=== PATIENT | female | born 1990 | race African-American/Black ===

== ENCOUNTER 2017-11-30 20:33 | Emergency (ER) | payer MEDICAID ==
[~2017-11-30] VITALS: Ht 172.7 cm; Wt 70.3 kg
[~2017-11-30 20:33] MED LIST: INSULIN LISPRO; LANTUS; LISI2.5T47 PO
[2017-11-30 22:28] LABS: Basophils # (auto) 0 uL; Eosinophils # (auto) 0.2 uL; Hematocrit 35.6 % (36.0-46.0); Hemoglobin 11.2 g/dL (12.2-16.2); Lymphocytes # (auto) 0.9 uL; Mean Corpuscular Hemoglobin 27.3 pg (28.0-32.0); Mean Corpuscular Hgb Conc. 31.5 g/dL (32.0-36.0); Mean Corpuscular Volume 86.7 fL (80.0-100.0); Monocytes # (auto) 0.3 uL; Monocytes % (auto) 6.3 % (0.0-12.0); Neutrophils # (auto) 3.2 uL; Neutrophils % (auto) 68.7 % (37.0-80.0); Nucleated Red Blood Cells % 0.1 %; Platelet Count (auto) 260 10^3/uL (140-450); Red Blood Cells 4.11 10^6/uL (4.0-5.20); Red Cell Distribution Width 16.3 % (11.8-14.3); White Blood Cell 4.7 10^3/uL (4.4-10.8)
[2017-11-30 22:38] LABS: Albumin 3.7 g/dL (3.4-5.0); BUN/Creatinine Ratio 3.1; Bilirubin, Total 0.5 mg/dL (0.2-1.0); Calcium 6.4 mg/dL (8.5-10.1); Potassium 3.9 mmol/L (3.5-5.1); Total Protein 8.8 g/dL (6.4-8.2)
[2017-11-30] MEDS ORDERED: LEVETIRACETAM INJ 1,000 MG in D5W 5% 100 ML IV ONE (23:15)
[2017-11-30 23:31] LABS: Magnesium 2.3 mg/dL (1.6-2.6)
[2017-11-30] MEDS ORDERED: LEVETIRACETAM 500 MG/5ML INJ IV ONE (23:56)
[2017-12-01 01:55] VITALS: BP 132/69
== END 2017-12-01 02:33 | disposition home or self-care (01) ==
LOC: ER 20:33
DX: G40.909 Epilepsy, unspecified, not intractable, without status epilepticus (principal); E83.51 Hypocalcemia; E11.22 Type 2 diabetes mellitus with diabetic chronic kidney disease; I13.2 Hypertensive heart and chronic kidney disease with heart failure and with stage 5 chronic kidney disease, or end stage renal disease; N18.6 End stage renal disease; Z99.2 Dependence on renal dialysis
CPT/HCPCS: 36415; 70450; 80053; 83735; 83880; 84443; 84484; 84702; 85025; 96365; 99285; J1953; J7060

== ENCOUNTER 2023-11-29 18:30 | Inpatient (IN) | payer MEDICAID ==
[~2023-11-29] VITALS: Ht 175.3 cm; Wt 83.8 kg
[~2023-11-29 18:30] MED LIST changes: +ASPI81CH43 PO; +CARV-216 PO; +DICL500C76 PO; +DOXY-286 PO; +NIC21P TOP; +SACU1TAB PO
[2023-11-29 22:10] LABS: Basophils # (auto) 0.1 10 ^3/uL (0-0.2); Basophils % (auto) 0.9 % (0.0-2.0); Eosinophils # (auto) 0.3 10 ^3/uL (0-0.8); Eosinophils % (auto) 3.1 % (0.0-7.0); Hemoglobin 10.2 g/dL (12.2-16.2); Mean Corpuscular Hemoglobin 28.6 pg (28.0-32.0); Mean Corpuscular Hgb Conc. 31.8 g/dL (32.0-36.0); Mean Corpuscular Volume 90.1 fL (80.0-100.0); Monocytes # (auto) 0.5 10 ^3/uL (0-1.3); Neutrophils # (auto) 5.3 10 ^3/uL (1.6-8.6); Red Blood Cells 3.56 10^6/uL (4.0-5.20); Red Cell Distribution Width 14.4 % (11.8-14.3); White Blood Cell 8.1 10^3/uL (4.4-10.8)
[2023-11-29 22:12] LABS: Chloride 97 mmol/L (98-107); Potassium 3.9 mmol/L (3.5-5.1); Sodium 137 mmol/L (136-145)
[2023-11-29 22:13] LABS: Anion Gap 10 (5-15); Calcium 8.1 mg/dL (8.5-10.1); Carbon Dioxide 30 mmol/L (20-30)
[2023-11-29 22:18] LABS: BUN/Creatinine Ratio 3.9 (10.0-20.0); Blood Urea Nitrogen 30 mg/dL (9-23); Glucose 200 mg/dL (74-106)
[2023-11-29 22:52] LABS: Erythrocyte Sedimentation Rate 67 mm/hr (0-20)
[2023-11-30] MEDS: cefTRIAXone 1GM/50ML D5W 50 ML IV ONE (01:08)
[2023-11-30] MEDS: CLINDAMYCIN 900MG IV 50 ML IV ONE (01:14)
[2023-11-30] MEDS ORDERED: HYDROcodone-ACET 5/325MG TAB PO PRN (02:00)
[2023-11-30] MEDS ORDERED: ACETAMINOPHEN 325 MG TAB PO PRN (02:00)
[2023-11-30] MEDS ORDERED: ONDANSETRON HCL 4 MG/2 ML VIAL IV PRN (02:00)
[2023-11-30] MEDS ORDERED: DEXTROSE (50%) 50ML SYRG IV PRN (02:00)
[2023-11-30] MEDS: InsuLIN REG 1unit/0.01ml Soln (100units/ml) SC SCH ×2 (07:00→23:06)
[2023-11-30] MEDS: ACCU-CHEK COMFORT CURVE STRIP VI SCH (07:07)
[2023-11-30] MEDS: CLINDAMYCIN 600MG IV 50 ML IV SCH (10:13)
[2023-11-30] MEDS: amLODIPine BESYLATE 5 MG TAB PO SCH (11:38)
[2023-11-30] MEDS: ASPirin 81 mg TAB PO SCH (11:38)
[2023-11-30] MEDS: CARVEDILOL 12.5 MG TAB PO SCH (12:04)
[2023-11-30] MEDS: SACUBITRIL-VALSARTAN 24mg/26mg TAB PO SCH (13:58)
[2023-11-30] MEDS: SODIUM CHL 0.9% 1000 ML BAG XX ONE (15:00)
[2023-11-30 16:59] VITALS: PULSE 89; RESP 20; O2SAT 96
[2023-11-30 19:04] LABS: % Iron Saturation 20.2 % (15-50)
[2023-11-30 19:05] LABS: Phosphorus 2.2 mg/dL (2.4-5.1)
[2023-11-30 19:30] VITALS: PULSE 76; RESP 18; O2SAT 96
[2023-11-30] MEDS: EPOETIN ALFA-EPBX 10,000 UNIT/1ML VIAL SC ONE (21:18)
[2023-11-30] MEDS: metroNIDAZOLE 500MG/100ML 100 ML IV SCH (23:04)
[2023-12-01] VITALS (10 sets, daily range): BP systolic 141–170; BP diastolic 58–85; PULSE 75–86; RESP 14–19; TEMP 98.2–98.9; O2SAT 98–100
[2023-12-01] MEDS: cefTRIAXone 1GM/50ML D5W 50 ML IV SCH (02:36)
[2023-12-01] MEDS: hydrALAZINE HCL 20 MG/ML VL IV ONE (05:57)
[2023-12-01 06:13] LABS: Basophils # (auto) 0.1 10 ^3/uL (0-0.2); Eosinophils # (auto) 0.3 10 ^3/uL (0-0.8); Eosinophils % (auto) 4.4 % (0.0-7.0); Hematocrit 32.8 % (36.0-46.0); Hemoglobin 10.4 g/dL (12.2-16.2); Lymphocytes # (auto) 1.7 10 ^3/uL (0.4-5.4); Lymphocytes % (auto) 22.6 % (10.0-50.0); Mean Corpuscular Hemoglobin 28.5 pg (28.0-32.0); Mean Corpuscular Hgb Conc. 31.7 g/dL (32.0-36.0); Monocytes # (auto) 0.5 10 ^3/uL (0-1.3); Monocytes % (auto) 7.4 % (0.0-12.0); Neutrophils # (auto) 4.7 10 ^3/uL (1.6-8.6); Neutrophils % (auto) 64.6 % (37.0-80.0); Nucleated Red Blood Cells % 0.1 %; Red Blood Cells 3.65 10^6/uL (4.0-5.20); Red Cell Distribution Width 14.2 % (11.8-14.3); White Blood Cell 7.3 10^3/uL (4.4-10.8)
[2023-12-01 06:28] LABS: Albumin 4.1 g/dL (3.2-4.8); Alkaline Phosphatase 99 U/L (46-116); Anion Gap 9 (5-15); Aspartate Aminotransferase < 8 U/L (13-40); BUN/Creatinine Ratio 3.6 (10.0-20.0); Blood Urea Nitrogen 22 mg/dL (9-23); Calcium 8.7 mg/dL (8.5-10.1); Carbon Dioxide 30 mmol/L (20-30); Chloride 99 mmol/L (98-107); Glucose 95 mg/dL (74-106); Sodium 138 mmol/L (136-145)
[2023-12-01 06:29] LABS: Bilirubin, Total 0.4 mg/dL (0.2-1.0); Total Protein 8.1 g/dL (5.7-8.2)
[2023-12-01 06:32] LABS: Alanine Aminotransferase < 9 U/L (7-40)
[2023-12-01] MEDS: DAKINS QUARTER STR 0.125% (NaHypochlorite) 473 ML TOPICAL SOL TOP SCH (10:00)
[2023-12-01] MEDS: B-COMPLEX W/ C & FOLIC ACID(NEPHROVITE TAB) PO SCH (10:00)
[2023-12-01] MEDS: CARVEDILOL 12.5 MG TAB PO SCH (11:42)
[2023-12-02 05:00] VITALS: BP 129/70; PULSE 75; RESP 14; TEMP 98; O2SAT 99
[2023-12-02 07:30] VITALS: PULSE 83; RESP 14; O2SAT 98
[2023-12-02 07:37] LABS: Basophils # (auto) 0.1 10 ^3/uL (0-0.2); Eosinophils # (auto) 0.2 10 ^3/uL (0-0.8); Eosinophils % (auto) 4.1 % (0.0-7.0); Hematocrit 32.4 % (36.0-46.0); Hemoglobin 10.5 g/dL (12.2-16.2); Lymphocytes # (auto) 1.6 10 ^3/uL (0.4-5.4); Lymphocytes % (auto) 26.7 % (10.0-50.0); Mean Corpuscular Hemoglobin 29.2 pg (28.0-32.0); Mean Corpuscular Hgb Conc. 32.2 g/dL (32.0-36.0); Mean Corpuscular Volume 90.5 fL (80.0-100.0); Monocytes # (auto) 0.6 10 ^3/uL (0-1.3); Monocytes % (auto) 9.9 % (0.0-12.0); Neutrophils # (auto) 3.4 10 ^3/uL (1.6-8.6); Neutrophils % (auto) 58.3 % (37.0-80.0); Red Blood Cells 3.58 10^6/uL (4.0-5.20); Red Cell Distribution Width 14.4 % (11.8-14.3); White Blood Cell 5.9 10^3/uL (4.4-10.8)
[2023-12-02 07:46] LABS: Anion Gap 15 (5-15); Carbon Dioxide 24 mmol/L (20-30); Chloride 98 mmol/L (98-107); Potassium 4.5 mmol/L (3.5-5.1); Sodium 137 mmol/L (136-145)
[2023-12-02 07:48] LABS: Calcium 8.3 mg/dL (8.5-10.1)
[2023-12-02 07:52] LABS: BUN/Creatinine Ratio 4.2 (10.0-20.0); Glucose 129 mg/dL (74-106)
[2023-12-02 07:53] LABS: Blood Urea Nitrogen 36 mg/dL (9-23)
[2023-12-02 08:28] LABS: INR 1.15 (0.9-1.15); Partial Thromboplastin Time 26.3 SEC (24.5-34.5); Prothrombin Time 12.1 sec (9.3-11.8)
[2023-12-02 09:00] VITALS: BP 113/64; PULSE 83; RESP 17; TEMP 97.1; O2SAT 100
[2023-12-02 13:00] VITALS: BP 138/80; PULSE 80; RESP 16; TEMP 98; O2SAT 99
[2023-12-02] MEDS ORDERED: GABA-1308 PO (17:29)
[2023-12-02] MEDS ORDERED: HYDR-4798 PO (17:29)
[2023-12-02] MEDS ORDERED: AMLO1TAB22 PO (17:29)
[2023-12-02 20:00] VITALS: PULSE 78; RESP 14; O2SAT 98
[2023-12-02 21:00] VITALS: BP 141/76; PULSE 78; RESP 14; TEMP 98.5; O2SAT 99
[2023-12-03 00:41] VITALS: BP 135/74; PULSE 78; RESP 14; TEMP 98.2; O2SAT 99
[2023-12-03 07:46] VITALS: PULSE 76; RESP 16; O2SAT 98
[2023-12-03 11:01] LABS: Basophils # (auto) 0.1 10 ^3/uL (0-0.2); Basophils % (auto) 0.9 % (0.0-2.0); Eosinophils # (auto) 0.2 10 ^3/uL (0-0.8); Eosinophils % (auto) 3.5 % (0.0-7.0); Hematocrit 32.9 % (36.0-46.0); Hemoglobin 10.4 g/dL (12.2-16.2); Lymphocytes # (auto) 1.4 10 ^3/uL (0.4-5.4); Lymphocytes % (auto) 20.4 % (10.0-50.0); Mean Corpuscular Hgb Conc. 31.5 g/dL (32.0-36.0); Mean Corpuscular Volume 88.9 fL (80.0-100.0); Monocytes # (auto) 0.4 10 ^3/uL (0-1.3); Monocytes % (auto) 6.4 % (0.0-12.0); Neutrophils # (auto) 4.6 10 ^3/uL (1.6-8.6); Neutrophils % (auto) 68.8 % (37.0-80.0); Nucleated Red Blood Cells % 0.1 %; Red Blood Cells 3.71 10^6/uL (4.0-5.20); Red Cell Distribution Width 14.5 % (11.8-14.3); White Blood Cell 6.7 10^3/uL (4.4-10.8)
[2023-12-03 13:00] VITALS: BP 152/86; PULSE 83; RESP 18; O2SAT 97
[2023-12-03 16:55] VITALS: BP 137/72; PULSE 88; RESP 18; O2SAT 98
[2023-12-03 20:30] VITALS: O2SAT 99
[2023-12-04 01:00] VITALS: BP 119/59; PULSE 91; RESP 18; O2SAT 99
[2023-12-04 06:26] LABS: Chloride 97 mmol/L (98-107); Potassium 4.2 mmol/L (3.5-5.1); Sodium 137 mmol/L (136-145)
[2023-12-04 06:27] LABS: Anion Gap 15 (5-15); Calcium 8.9 mg/dL (8.5-10.1); Carbon Dioxide 25 mmol/L (20-30)
[2023-12-04 06:32] LABS: BUN/Creatinine Ratio 3.5 (10.0-20.0); Blood Urea Nitrogen 27 mg/dL (9-23); Glucose 78 mg/dL (74-106)
[2023-12-04 08:00] VITALS: PULSE 72; RESP 17; O2SAT 98
[2023-12-04 09:00] VITALS: BP_SYST 118; BP_SYST 142; BP_DIAS 69; BP_DIAS 73; PULSE 63; PULSE 82; RESP 16; RESP 17; TEMP 97.8; O2SAT 96; O2SAT 98
[2023-12-04] MEDS ORDERED: VANCOMYCIN PER PHARMACY 0 MG IV SCH (11:45)
[2023-12-04] MEDS: DAKINS HALF STR 0.25% (NaHypochlorite) 473 ML TOPICAL SOL TOP ONE (12:15)
[2023-12-04] MEDS: VANCOMYCIN 1GM/200ML 200 ML IV ONE (12:15)
[2023-12-04 16:58] VITALS: BP 129/70; PULSE 96; RESP 16; O2SAT 97
[2023-12-04 21:00] VITALS: BP 150/83; PULSE 80; RESP 17; TEMP 97.1; O2SAT 100
[2023-12-05 05:15] VITALS: BP 128/70; PULSE 77; RESP 17; TEMP 97; O2SAT 100
[2023-12-05 07:30] VITALS: BP 128/70; PULSE 75; PULSE 77; RESP 17; TEMP 97.8; O2SAT 97
[2023-12-05 09:11] LABS: INR 1.16 (0.9-1.15); Partial Thromboplastin Time 23.9 SEC (24.5-34.5); Prothrombin Time 12.2 sec (9.3-11.8)
[2023-12-05] MEDS: LIDOCAINE 1% (LOCAL ANESTH.) PF 5ml SDV ID ONE (11:32)
[2023-12-05 15:07] VITALS: BP 171/74; PULSE 81; RESP 18; TEMP 98.5; O2SAT 98
[2023-12-05] MEDS ORDERED: SODIUM CHLOR 0.9% PF (SALINE LOCK) 10ML VIAL/SYR IV SCH (22:00)
== END 2023-12-05 16:05 | disposition home health service (06) | DRG 344 ==
LOC: ER 18:30 → OVERFLOW 11-30 01:58 → CENTRAL 12-01 03:25
PROVIDERS: ADMIT Nurse Practitioner Acute Care; ATTEND Nurse Practitioner Acute Care
PROC: 5A1D70Z Performance of Urinary Filtration, Intermittent, Less than 6 Hours Per Day (ICD-10-PCS; principal; 2023-11-30)
PROC: 0JBQ0ZZ Excision of Right Foot Subcutaneous Tissue and Fascia, Open Approach (ICD-10-PCS; 2023-12-04)
PROC: 02HV33Z Insertion of Infusion Device into Superior Vena Cava, Percutaneous Approach (ICD-10-PCS; 2023-12-05)
PROC: B548ZZA Ultrasonography of Superior Vena Cava, Guidance (ICD-10-PCS; 2023-12-05)
DX: E11.621 Type 2 diabetes mellitus with foot ulcer (principal); M86.672 Other chronic osteomyelitis, left ankle and foot; M86.671 Other chronic osteomyelitis, right ankle and foot; I13.2 Hypertensive heart and chronic kidney disease with heart failure and with stage 5 chronic kidney disease, or end stage renal disease; L03.115 Cellulitis of right lower limb; E11.22 Type 2 diabetes mellitus with diabetic chronic kidney disease; D63.1 Anemia in chronic kidney disease; E83.39 Other disorders of phosphorus metabolism; N18.6 End stage renal disease; L03.116 Cellulitis of left lower limb; L97.519 Non-pressure chronic ulcer of other part of right foot with unspecified severity; E11.69 Type 2 diabetes mellitus with other specified complication; I50.9 Heart failure, unspecified; F41.9 Anxiety disorder, unspecified; F32.A Depression, unspecified; L97.529 Non-pressure chronic ulcer of other part of left foot with unspecified severity; L84 Corns and callosities; S90.821A Blister (nonthermal), right foot, initial encounter; X58.XXXA Exposure to other specified factors, initial encounter; Z99.2 Dependence on renal dialysis; Z79.82 Long term (current) use of aspirin; Z79.899 Other long term (current) drug therapy; Z82.0 Family history of epilepsy and other diseases of the nervous system; Z82.5 Family history of asthma and other chronic lower respiratory diseases; Z80.0 Family history of malignant neoplasm of digestive organs; Z80.3 Family history of malignant neoplasm of breast; Z82.49 Family history of ischemic heart disease and other diseases of the circulatory system; Z81.8 Family history of other mental and behavioral disorders; Z83.3 Family history of diabetes mellitus; Z82.62 Family history of osteoporosis; Z80.41 Family history of malignant neoplasm of ovary; Z80.1 Family history of malignant neoplasm of trachea, bronchus and lung; Z59.00 Homelessness unspecified; Z80.8 Family history of malignant neoplasm of other organs or systems; Z82.3 Family history of stroke; Y93.89 Activity, other specified; Y92.89 Other specified places as the place of occurrence of the external cause; Y99.8 Other external cause status; Z79.4 Long term (current) use of insulin
CPT/HCPCS: 36415; 36569; 71045; 73630; 73700; 80048; 80053; 80202; 82306; 82728; 82962; 83036; 83540; 83550; 83735; 83970; 84100; 84702; 85025; 85610; 85652; 85730; 87040; 87070; 87075; 87077; 87186; 87205; 87340; 90935; G0378; J1642; J1815; J3490

== ENCOUNTER 2024-06-21 23:30 | Emergency (ER) | payer MEDICAID ==
[~2024-06-21] VITALS: Ht 175.3 cm; Wt 86.4 kg
[~2024-06-21 23:30] MED LIST changes: +AMLO1TAB22 PO; -DICL500C76 PO; -DOXY-286 PO; +DOXY1CAP57 PO; +GABA-1308 PO; +HYDR-4798 PO; -NIC21P TOP
[2024-06-22] MEDS: LIDOCAINE 1% HCL (LOCAL ANESTH.) INJ 20ML MDV ID ONE
[2024-06-22] MEDS ORDERED: CEPH250C PO (01:04)
[2024-06-22] MEDS ORDERED: ACET500T58 PO (01:04)
--- NOTE | 2024-06-22 01:05 | ED.PDOC ---
HPI Comments This patient is a pleasant 33-year-old female who arrives to the ED today for evaluation of the laceration to her left thumb sustained on a can lid while preparing food proximally 1/2 hour prior to arrival. Patient had open a can of beans when she cut her thumb. Patient arrives with bleeding controlled. Patient's tetanus is not up-to-date. Vital signs were stable. Chief Complaint: Laceration Time Seen by MD: 23:48 Primary Care Provider: [facility] Reviewed Notes: Nurses Notes Allergies: Coded Allergies: Nitroglycerin (Verified Allergy, Unknown, 12/31/20) Home Meds Active Scripts Doxycycline Monohydrate (Doxycycline Monohydrate) 100 Mg Cap, 100 MG PO BID for 42 Days, #84 CAP Prov:ADOFLO AGUILAR MD 12/14/23 Sacubitril-Valsartan (Entresto 24-26 mg) 1 Tab Tab, 1 TAB PO BID, #60 TAB Prov:WANDA BALDWIN MD 08/31/19 Carvedilol (COREG) 12.5 Mg Tab, 12.5 MG PO Q12HR, #60 TAB Prov:WANDA BALDWIN MD 08/31/19 Aspirin (Asa) 81 Mg Ch, 81 MG PO DAILY, #30 TAB.CHEW Prov:WANDA BALDWIN MD 08/31/19 Reported Medications Hydrocodone-Acetaminophen (Hydrocodone Bitartrate/AC 10-325 mg) 1 Tab Tab, 1 TAB PO TID 12/02/23 Gabapentin (Gabapentin) 100 Mg Cap, 1 TAB PO TID 12/02/23 Amlodipine Besylate (Amlodipine Besylate) 5 Mg Tab, 10 MG PO DAILY 12/02/23 Lisinopril (Lisinopril) 2.5 Mg Tab, 2.5 MG PO DAILY 11/15/11 [Humalog 3 Unit Ac] No Conflict Check 09/26/10 [Lantus] No Conflict Check, SUB 10 UNITS HS 09/26/10 Information Source: Patient Mode of Arrival: Ambulatory Severity: Moderate Severity of Laceration: Controlled Bleeding Complexity: Simple Timing: Minutes Prehospital treatment: None Laceration Location: Digit #1 Mechanism: Metal Laceration Length (cm): 1 Skin Type: Linear Depth of Injury: Skin, Mucosa Tendon Injury: 0% Tender: Mild Past Medical History PAST MEDICAL HISTORY: Anxiety, Depression, DM, ESRD, HTN, Seizures Surgical History: Denies all surgeries GROCERY SHOPPER History: No Pertinent GROCERY SHOPPER History Family History Family History: Unknown Social History Smoker: Non-Smoker Alcohol: Denies ETOH Use Drugs: Denies Drug Use Lives In: Home Constitutional: denies: chills, diaphoresis, fatigue, fever, malaise, sweats, weakness, others EENTM: denies: blurred vision, double vision, ear bleeding, ear discharge, ear drainage, ear pain, ear ringing, eye pain, eye redness, hearing loss, mouth pain, mouth swelling, nasal discharge, nose bleeding, nose congestion, nose pain, photophobia, tearing, throat pain, throat swelling, voice changes, others Respiratory: denies: cough, hemoptysis, orthopnea, SOB at rest, shortness of breath, SOB with excertion, stridor, wheezing, others Cardiovascular: denies: chest pain, dizzy spells, diaphoresis, Dyspnea on exertion, edema, irregular heart beat, left arm pain, lightheadedness, pa lpitations, PND, syncope, others Gastrointestinal: denies: abdomen distended, abdominal pain, blood streaked bowels, constipated, diarrhea, dysphagia, difficulty swallowing, hematemesis, melena, nausea, poor appetite, poor fluid intake, rectal bleeding, rectal pain, vomiting, others Genitourinary: denies: abnormal vagina bleeding, burning, dyspareunia, dysuria, flank pain, frequency, hematuria, incontinence, pain, , vagina discharge, urgency, others Neurological: denies: dizziness, fainting, headache, left sided numbness, left sided weakness, numbness, paresthesia, pre-existing deficit, right sided numbness, right sided weakness, seizure, speech problems, tingling, tremors, weakness, others Musculoskeletal: denies: back pain, gout, joint pain, joint swelling, muscle pain, muscle stiffness, neck pain, others Integumetry: reports: laceration (To left thumb); denies: bruises, change in color, change in hair/nails, dryness, lesions, lumps, rash, wounds, others Allergic/Immunocompromised: denies: Difficulty Healing, Frequent Infections, Hives, Itching, others Hematologic/Lymphatic: denies: anemia, blood clots, easy bleeding, easy bruising, swollen glands, others Endocrine: denies: excessive hunger, excessive sweating, excessive thirst, excessive urination, flushing, intolerance to cold, intolerance to heat, unexpla ined weight gain, unexplained weight loss, others Psychiatric: denies: anxiety, bipolar disorder, depression, hopeless, panic disorder, schizophrenia, sleepless, suicidal, others Physical Exam General Appearance: Mild Distress (Moderate distress due to thumb laceration pain and anxiety concerns.), Normal HEENT: Normal ENT Inspection, Pharynx Normal, TMs Normal Neck: Full Range of Motion, Non-Tender, Normal, Normal Inspection Respiratory: Chest Non-Tender, Lungs Clear, No Accessory Muscle Use, No Respiratory Distress, Normal Breath Sounds Cardiovascular: No Edema, No JVD, No Murmur, No Gallop, Normal Peripheral Pulses, Regular Rate/Rhythm Breast Exam: Deferred Gastrointestinal: No Organomegaly, Non Tender, No Pulsatile Mass, Normal Bowel Sounds, Soft Genitalia: Deferred Pelvic: Deferred Rectal: Deferred Extremities: No calf tenderness, Normal capillary refill, Normal inspection, Normal range of motion, Non-tender, No pedal edema Neurologic: Alert, woodwinds teacher II-XII nml as Tested, No Motor Deficits, Normal Affect, Normal Mood, No Sensory Deficits Cerebellar Function: Normal Reflexes: Normal Skin: Dry, Lacerations (1 cm laceration noted to the palmar aspect of the MCP joint of the left thumb. No active bleed. No tendon involvement.), Normal Color, Warm Lymphatic: No Adenopathy Was a procedure done? Was a procedure done?: Yes Sedation Sedation?: No Other Procedure Notes 3 cc of 1% lidocaine was utilized for local anesthesia. Copious irrigation performed. Three 4-0 Ethilon sutures were utilized in a simple interrupted fashion to close the wound. Patient tolerated procedure well. Minimal blood loss. Clean dressing applied. Differential diagnosis Generic Laceration: Laceration X-Ray, Labs, Meds, VS Vital Signs Date Time Temp Pulse Resp B/P (MAP) Pulse Ox O2 Delivery O2 Flow Rate FiO2 06/21/24 23:40 98.6 87 17 182/89 (120) 100 X-Ray, Labs, Meds, VS Comment Patient tolerated procedure well. Advised patient she needs to follow up with primary care provider or return to ED in 8-10 days for re-evaluation and probable suture removal. Advise utilizing antibiotics as directed until completion as well as pain medication as needed. Time of 1ST Reevaluation: 01:02 Reevaluation 1ST: Improved Consultation: PCP Patient Education/Counseling: Diagnosis, Treatment Family Education/Counseling: Diagnosis, Treatment Departure 1 Departure Time of Disposition: 01:03 Impression: Primary Impression: Hand laceration Disposition: HOME / SELF CARE / HOMELESS Condition: Stable Additional Instructions: Advise utilizing antibiotics as directed until completion as well as pain medication as needed. Patient should return to ED or primary care provider in 8-10 days for re-evaluation and probable suture removal. e-Prescriptions Acetaminophen (Acetaminophen) 500 Mg Tab 500 MG PO Q4HP PRN, #20 TAB Prov: SUHA JEFFERY PAC 06/22/24 Cephalexin (KEFLEX CAPSULE) 250 Mg Cp 1 CAP PO QID for 5 Days, #20 CAP Prov: SUHA JEFFERY PAC 06/22/24 Discharged With: Self, Friend Critical Care Note Critical Care Time?: No Stability Stability form required: No Heart Score Heart Score: Heart Score Response (Comments) Value History N/A 0 EKG N/A 0 Age N/A 0 Risk Factors N/A 0 Troponin N/A 0 Total 0 SUHA JEFFERY PAC Jun 22, 2024 01:05
[2024-06-22] MEDS: TETANUS-DIPTH-ACEL PERTUSSIS 0.5ML SYR Tdap IM ONE (01:08)
[2024-06-22 01:14] VITALS: BP 146/81; PULSE 86; RESP 18; TEMP 98.6; O2SAT 98
[2024-06-22] MEDS ORDERED: BACIOIN15 TOP (01:27)
== END 2024-06-22 01:22 | disposition home or self-care (01) ==
LOC: ER 23:30
DX: S61.012A Laceration without foreign body of left thumb without damage to nail, initial encounter (principal); E11.22 Type 2 diabetes mellitus with diabetic chronic kidney disease; I12.0 Hypertensive chronic kidney disease with stage 5 chronic kidney disease or end stage renal disease; N18.6 End stage renal disease; Z79.82 Long term (current) use of aspirin; Z79.899 Other long term (current) drug therapy; W26.8XXA Contact with other sharp object(s), not elsewhere classified, initial encounter; Y93.G1 Activity, food preparation and clean up; Y92.89 Other specified places as the place of occurrence of the external cause; Y99.8 Other external cause status
CPT/HCPCS: 12001; 90471; 90715; 99283; J2003

== ENCOUNTER 2024-07-26 16:13 | Emergency (ER) | payer MEDICAID ==
[~2024-07-26] VITALS: Ht 175.3 cm; Wt 83.0 kg
[~2024-07-26 16:13] MED LIST changes: +ACET500T58 PO; +BACIOIN15 TOP
--- NOTE | 2024-07-26 18:48 | DVH ---
CHEST RADIOGRAPH Indication: Shortness of breath Technique: Single frontal view of the chest was obtained COMPARISON: XY CHEST PORTABLE on DOS: 12/02/23 FINDINGS: Lines and Tubes: None Lungs: Vague bibasilar opacities may reflect atelectasis or mild pneumonia Pleura: Questionable trace bilateral effusions. No pneumothorax. Cardiomediastinal contours: Mild cardiomegaly Bones: Unremarkable IMPRESSION: 1. Vague bibasilar opacities may reflect atelectasis or mild pneumonia. 2. Questionable trace bilateral effusions
[2024-07-26] MEDS: IPRATROPIUM BROM 0.5 MG/2.5ML INH SOL NEB ONE (19:11)
[2024-07-26] MEDS: ALBUTEROL SULF 2.5 MG/0.5ML(0.5%) NEB SOLN NEB ONE (19:11)
[2024-07-26 19:13] LABS: Basophils # (auto) 0.1 10 ^3/uL (0-0.2); Basophils % (auto) 0.8 % (0.0-2.0); Eosinophils # (auto) 0.3 10 ^3/uL (0-0.8); Monocytes # (auto) 0.4 10 ^3/uL (0-1.3); Neutrophils # (auto) 4.8 10 ^3/uL (1.6-8.6); Red Blood Cells 2.85 10^6/uL (4.0-5.20); White Blood Cell 6.9 10^3/uL (4.4-10.8)
[2024-07-26 19:15] LABS: Eosinophils % (auto) 4.8 % (0.0-7.0); Hematocrit 25.4 % (36.0-46.0); Hemoglobin 8.1 g/dL (12.2-16.2); Lymphocytes # (auto) 1.2 10 ^3/uL (0.4-5.4); Lymphocytes % (auto) 17.9 % (10.0-50.0); Mean Corpuscular Hemoglobin 28.5 pg (28.0-32.0); Mean Corpuscular Hgb Conc. 31.9 g/dL (32.0-36.0); Mean Corpuscular Volume 89.2 fL (80.0-100.0); Neutrophils % (auto) 70.5 % (37.0-80.0); Nucleated Red Blood Cells % 0.1 %; Platelet Count (auto) 334 10^3/uL (140-450); Red Cell Distribution Width 15.6 % (11.8-14.3)
[2024-07-26 19:27] LABS: Chloride 101 mmol/L (98-107); Sodium 140 mmol/L (136-145)
[2024-07-26 19:28] LABS: Anion Gap 11 (5-15); Calcium 9.5 mg/dL (8.7-10.4); Carbon Dioxide 28 mmol/L (20-31)
[2024-07-26 20:01] LABS: Blood Urea Nitrogen 40 mg/dL (9-23); Glucose 128 mg/dL (74-106); Potassium 2.8 mmol/L (3.5-5.1)
[2024-07-26] MEDS: DexAMETHasone SOD PHOS 10MG/1ML VIAL INJ IM ONE (20:11)
[2024-07-26 20:17] VITALS: BP 153/90; PULSE 87; RESP 19; TEMP 98.2; O2SAT 97
[2024-07-26] MEDS ORDERED: ALBU108A5 IN (22:45)
[2024-07-26] MEDS ORDERED: AZIT500T66 PO (22:45)
--- NOTE | 2024-07-26 22:45 | ED.PDOC ---
SOB-HPI HPI Comments This patient is a pleasant 34-year-old female who arrives to the ED today for evaluation of shortness a breath and coughing concerns for the past few days. Patient states she has an end-stage renal disease patient on dialysis. Patient missed her dialysis appointment yesterday. Patient states intermittent subjective fever but no nausea or vomiting. Patient was hypertensive at arrival. Chief Complaint: Shortness of Breath Time Seen by MD: 18:03 Primary Care Provider: [facility] Reviewed notes: Nurses Notes Information Source: Patient Mode of Arrival: Ambulatory Severity: Moderate Timing: Days Duration: Since onset Context: At Rest PE Risk Factors: None History of: Other (End-stage renal disease on dialysis) Prehospital treatment: None Modifying Factors: Nothing Associated Signs and Symptoms: Cough If cough with SOB: Non-Productive Past Medical History PAST MEDICAL HISTORY: Anxiety, Depression, DM, ESRD, HTN, Seizures Surgical History: Denies all surgeries CATHETER FINISHER AND INSPECTOR History: No Pertinent CATHETER FINISHER AND INSPECTOR History Family History Family History: Unknown Social History Smoker: Non-Smoker Alcohol: Denies ETOH Use Drugs: Denies Drug Use Lives In: Home Constitutional: reports: fever, weakness; denies: chills, diaphoresis, fatigue, malaise, sweats, others EENTM: denies: blurred vision, double vision, ear bleeding, ear discharge, ear drainage, ear pain, ear ringing, eye pain, eye redness, hearing loss, mouth pain, mouth swelling, nasal discharge, nose bleeding, nose congestion, nose pain, photophobia, tearing, throat pain, throat swelling, voice changes, others Respiratory: reports: cough, shortness of breath; denies: hemoptysis, orthopnea, SOB at rest, SOB with excertion, stridor, wheezing, others Cardiovascular: denies: chest pain, dizzy spells, diaphoresis, Dyspnea on exertion, edema, irregular heart beat, left arm pain, lightheadedness, palpitations, PND, syncope, others Gastrointestinal: denies: abdomen distended, abdominal pain, blood streaked bowels, constipated, diarrhea, dysphagia, difficulty swallowing, hematemesis, melena, nausea, poor appetite, poor fluid intake, rectal bleeding, rectal pain, vomiting, others Genitourinary: denies: abnormal vagina bleeding, burning, dyspareunia, dysuria, flank pain, frequency, hematuria, incontinence, pain, , vagina discharge, urgency, others Neurological: denies: dizziness, fainting, headache, left sided numbness, left sided weakness, numbness, paresthesia, pre-existing deficit, right sided numbness, right sided weakness, seizure, speech problems, tingling, tremors, weakness, others Musculoskeletal: denies: back pain, gout, joint pain, joint swelling, muscle pain, muscle stiffness, neck pain, others Integumetry: denies: bruises, change in color, change in hair/nails, dryness, laceration, lesions, lumps, rash, wounds, others Allergic/Immunocompromised: denies: Difficulty Healing, Frequent Infections, Hives, Itching, others Hematologic/Lymphatic: denies: anemia, blood clots, easy bleeding, easy bruising, swollen glands, others Endocrine: denies: excessive hunger, excessive sweating, excessive thirst, excessive urination, flushing, intolerance to cold, intolerance to heat, unexplained weight gain, unexplained weight loss, others Psychiatric: denies: anxiety, bipolar disorder, depression, hopeless, panic disorder, schizophrenia, sleepless, suicidal, others Physical Exam General Appearance: Moderate Distress (Patient presents as a moderately ill 34-year-old female.), Normal HEENT: Normal ENT Inspection, Pharynx Normal, TMs Normal Neck: Full Range of Motion, Non-Tender, Normal, Normal Inspection Respiratory: Chest Non-Tender, No Accessory Muscle Use, No Respiratory Distress, Wheezing (Mild bilateral wheezing appreciated. No signs of respiratory distress. No accessory muscle use.) Cardiovascular: No Edema, No JVD, No Murmur, No Gallop, Normal Peripheral Pulses, Regular Rate/Rhythm Breast Exam: Deferred Gastrointestinal: No Organomegaly, Non Tender, No Pulsatile Mass, Normal Bowel Sounds, Soft Genitalia: Deferred Pelvic: Deferred Rectal: Deferred Extremities: No calf tenderness, Normal capillary refill, Normal inspection, Normal range of motion, Non-tender, No pedal edema Neurologic: Alert, director packaging II-XII nml as Tested, No Motor Deficits, Normal Affect, Normal Mood, No Sensory Deficits Cerebellar Function: Normal Reflexes: Normal Skin: Dry, Normal Color, Warm Lymphatic: No Adenopathy Was a procedure done? Was a procedure done?: No Differential Dx Differential Diagnosis: Asthma, Bronchitis, CHF, URI, Other (Pulmonary edema, acute CHF exacerbation) X-Ray, Labs, Meds, VS Vital Signs Date Time Temp Pulse Resp B/P (MAP) Pulse Ox O2 Delivery O2 Flow Rate FiO2 07/26/24 20:17 87 19 97 Room Air 07/26/24 20:17 98.2 87 19 153/90 (111) 97 98.2 07/26/24 19:11 99 Room Air* 0 21 07/26/24 19:11 18 99 Room Air* 0 21 07/26/24 16:44 90 07/26/24 16:14 99.3 97 20 161/84 (109) 98 Lab Test 07/26/24 18:54 Range/Units White Blood Count 6.9 4.4-10.8 10^3/uL Red Blood Count 2.85 L 4.0-5.20 10^6/uL Hemoglobin 8.1 L 12.2-16.2 g/dL Hematocrit 25.4 L 36.0-46.0 % Mean Corpuscular Volume 89.2 80.0-100.0 fL Mean Corpuscular Hemoglobin 28.5 28.0-32.0 pg Mean Corpuscular Hemoglobin Concent 31.9 L 32.0-36.0 g/dL Red Cell Distribution Width 15.6 H 11.8-14.3 % Platelet Count 334 140-450 10^3/uL Mean Platelet Volume 6.8 L 6.9-10.8 fL Neutrophils (%) (Auto) 70.5 37.0-80.0 % Lymphocytes (%) (Auto) 17.9 10.0-50.0 % Monocytes (%) (Auto) 6.0 0.0-12.0 % Eosinophils (%) (Auto) 4.8 0.0-7.0 % Basophils (%) (Auto) 0.8 0.0-2.0 % Neutrophils # (Auto) 4.8 1.6-8.6 10 ^3/uL Lymphocytes # (Auto) 1.2 0.4-5.4 10 ^3/uL Monocytes # (Auto) 0.4 0-1.3 10 ^3/uL Eosinophils # (Auto) 0.3 0-0.8 10 ^3/uL Basophils # (Auto) 0.1 0-0.2 10 ^3/uL Nucleated Red Blood Cells 0.1 % D-Dimer, Quantitative 1.31 H 0.0-0.49 mg/L FEU Sodium Level 140 136-145 mmol/L Potassium Level 2.8 L 3.5-5.1 mmol/L Chloride Level 101 98-107 mmol/L Carbon Dioxide Level 28 20-31 mmol/L Anion Gap 11 5-15 Blood Urea Nitrogen 40 H 9-23 mg/dL Creatinine 10.09 *H 0.550-1.02 mg/dL Glomerular Filtration Rate Calc 5 >90 mL/min BUN/Creatinine Ratio 4.0 L 10.0-20.0 Serum Glucose 128 H 74-106 mg/dL Calcium Level 9.5 8.7-10.4 mg/dL Troponin I High Sensitivity 36 *H </=34 ng/L B-Type Natriuretic Peptide 1177.12 0-100 pg/mL Current Medications Medications (Trade) Dose Ordered Sig/Celina Route Start Time Stop Time Status Last Admin Albuterol (Ventolin Medneb) 5 mg ONCE ONCE NEB 07/26/24 18:15 07/26/24 18:16 DC 07/26/24 19:11 Ipratropium [place] (Atrovent Medneb) 0.5 mg ONCE ONCE NEB 07/26/24 18:15 07/26/24 18:16 DC 07/26/24 19:11 Dexamethasone Sodium Phosphate (Decadron Injection) 10 mg ONCE ONCE IM 07/26/24 18:15 07/26/24 18:17 DC 07/26/24 20:11 X-Ray, Labs, Meds, VS Comment Patient had good response to medication dispensed in the ED. All studies performed the ED were evaluated by me personally. Laboratories studies confirmed anemia, hypokalemia, acute on chronic renal concerns as well as an elevated D-dimer is a CHF exacerbation. Imaging studies showed bibasilar opacities appeals representative of pneumonia. Spent extensive time discussing the patient's condition with her the value admission. Patient stated that she does not want to be admitted and will manage her electrolyte and dialysis concerns on her own. Patient states she will take the antibiotic for the bibasilar pneumonia. Time of 1ST Reevaluation: 22:40 Reevaluation 1ST: Improved Consultation: PCP, Other (Nephrology, Cardiology, dialysis) Patient Education/Counseling: Diagnosis, Treatment Family Education/Counseling: Diagnosis, Treatment Departure 1 Departure Time of Disposition: 22:42 Impression: Primary Impression: Pneumonia Additional Impressions: End stage renal disease on dialysis Acute exacerbation of CHF (congestive heart failure) Hypokalemia Elevated d-dimer Disposition: HOME / SELF CARE / HOMELESS Condition: Stable Additional Instructions: Advised patient utilize antibiotics as directed until completion additionally, patient should follow up with her primary care provider and furniture finisher for continued evaluation related to her end-stage renal disease. e-Prescriptions Albuterol Sulfate (Albuterol Sulfate Hfa) 108 Mcg/Act Aer 108 MCG IN Q4HP PRN, #1 AER Prov: SUHA JEFFERY PAC 07/26/24 Azithromycin (Azithromycin) 500 Mg Tab 1 TAB PO DAILY for 4 Days, #4 TAB Prov: SUHA JEFFERY PAC 07/26/24 Discharged With: Self, Friend Critical Care Note Critical Care Time?: No Stability Stability form required: No Heart Score Heart Score: Heart Score Response (Comments) Value History N/A 0 EKG N/A 0 Age N/A 0 Risk Factors N/A 0 Troponin N/A 0 Total 0 SUHA JEFFERY PAC Jul 26, 2024 22:45
[2024-07-26] MEDS: AZITHROMYCIN 250 MG TAB PO ONE (22:51)
[2024-07-26] MEDS: POTASSIUM EFFERVESENT TAB 25 MEQ PO ONE (22:55)
[2024-07-26] MEDS: POTASSIUM CHL 20 Meq TABLET PO ONE (23:02)
== END 2024-07-26 23:03 | disposition home or self-care (01) ==
LOC: ER 16:13
DX: J18.9 Pneumonia, unspecified organism (principal); E87.6 Hypokalemia; E11.22 Type 2 diabetes mellitus with diabetic chronic kidney disease; I13.2 Hypertensive heart and chronic kidney disease with heart failure and with stage 5 chronic kidney disease, or end stage renal disease; I50.9 Heart failure, unspecified; N18.6 End stage renal disease; Z99.2 Dependence on renal dialysis; Z91.158 Patient's noncompliance with renal dialysis for other reason
CPT/HCPCS: 36415; 71045; 80048; 83880; 84484; 85025; 85379; 94640; 96372; 99284; J1100

== ENCOUNTER 2024-08-06 14:24 | Emergency (ER) | payer MEDICAID ==
[~2024-08-06] VITALS: Ht 175.3 cm; Wt 70.0 kg
[~2024-08-06 14:24] MED LIST changes: +ALBU108A5 IN; +AZIT500T66 PO
--- NOTE | 2024-08-06 18:32 | DVH ---
EXAM: CT CHEST WITHOUT CONTRAST History: sob Comparison Study: None available TECHNIQUE: Multidetector CT of the chest was performed. Imaging was performed without IV contrast. Ax ial, coronal, and sagittal multiplanar reformats were obtained from the axial data set by the technol [place]. Radiation Dose : CTDI vol 16.07 mGy, DLP 518.47 mGy*cm. Findings: Lungs: The lungs are clear. Pleura: Trace bilateral pleural effusions. Heart/Great vessels: The visualized heart is unremarkable. Mild cardiomegaly. Small pericardial effus ion. Mediastinum: Unremarkable Soft tissues/Bones: Unremarkable The partially visualized upper abdomen is within normal limits. Impression: 1. Trace bilateral pleural effusions. 2. Mild cardiomegaly with a small pericardial effusions.
--- NOTE | 2024-08-06 18:55 | ED.PDOC ---
SOB-HPI HPI Comments Patient states she was sent by her primary care doctor to have her pulmonary effusion evaluated. States she had chest x-ray done on August 02. She was contacted on Tuesday and told she needed to come into the emergency department. States she has been having no shortness a breath no chest pain. Patient does report being a dialysis patient, she did miss dialysis today but she has a scheduled for Tuesday. She wants to make sure that she does not need any fluid drained from her lungs. Patient denies any fever or chills. Chief Complaint: Shortness of Breath Time Seen by MD: 17:10 Primary Care Provider: [facility] Reviewed notes: Nurses Notes Information Source: Patient Mode of Arrival: Ambulatory Past Medical History PAST MEDICAL HISTORY: Anxiety, Depression, DM, ESRD, HTN, Seizures Surgical History: Denies all surgeries AUTOMOBILE INSURANCE CLAIM EXAMINER History: No Pertinent AUTOMOBILE INSURANCE CLAIM EXAMINER History Family History Family History: Unknown Social History Smoker: Non-Smoker Alcohol: Denies ETOH Use Drugs: Denies Drug Use Lives In: Home Constitutional: denies: chills, diaphoresis, fatigue, fever, malaise, sweats, weakness, others EENTM: denies: blurred vision, double vision, ear bleeding, ear discharge, ear drainage, ear pain, ear ringing, eye pain, eye redness, hearing loss, mouth pain, mouth swelling, nasal discharge, nose bleeding, nose congestion, nose pain, photophobia, tearing, throat pain, throat swelling, voice changes, others Respiratory: reports: cough; denies: hemoptysis, orthopnea, SOB at rest, shortness of breath, SOB with excertion, stridor, wheezing, others Cardiovascular: denies: chest pain, dizzy spells, diaphoresis, Dyspnea on exertion, edema, irregular heart beat, left arm pain, lightheadedness, palpitations, PND, syncope, others Gastrointestinal: denies: abdomen distended, abdominal pain, blood streaked bowels, constipated, diarrhea, dysphagia, difficulty swallowing, hematemesis, melena, nausea, poor appetite, poor fluid intake, rectal bleeding, rectal pain, vomiting, others Genitourinary: denies: abnormal vagina bleeding, burning, dyspareunia, dysuria, flank pain, frequency, hematuria, incontinence, pain, , vagina discharge, urgency, others Neurological: denies: dizziness, fainting, headache, left sided numbness, left sided weakness, numbness, paresthesia, pre-existing deficit, right sided numbness, right sided weakness, seizure, speech problems, tingling, tremors, weakness, others Musculoskeletal: denies: back pain, gout, joint pain, joint swelling, muscle pain, muscle stiffness, neck pain, others Integumetry: denies: bruises, change in color, change in hair/nails, dryness, laceration, lesions, lumps, rash, wounds, others Allergic/Immunocompromised: denies: Difficulty Healing, Frequent Infections, Hives, Itching, others Hematologic/Lymphatic: denies: anemia, blood clots, easy bleeding, easy bruising, swollen glands, others Physical Exam General Appearance: No Apparent Distress, Normal HEENT: Normal ENT Inspection, Pharynx Normal, TMs Normal Neck: Full Range of Motion, Non-Tender, Normal, Normal Inspection Respiratory: Chest Non-Tender, Lungs Clear, No Accessory Muscle Use, No Respiratory Distress, Normal Breath Sounds Cardiovascular: No Edema, No JVD, No Murmur, No Gallop, Normal Peripheral Pulses, Regular Rate/Rhythm Breast Exam: Deferred Gastrointestinal: No Organomegaly, Non Tender, No Pulsatile Mass, Normal Bowel Sounds, Soft Genitalia: Deferred Pelvic: Deferred Rectal: Deferred Extremities: No calf tenderness, Normal capillary refill, Normal inspection, Normal range of motion, Non-tender, No pedal edema Musculoskeletal : Apperance: Normal Neurologic: Alert, bow maker machine tender II-XII nml as Tested, No Motor Deficits, Normal Affect, Normal Mood, No Sensory Deficits Cerebellar Function: Normal Reflexes: Normal Skin: Dry, Normal Color, Warm Lymphatic: No Adenopathy Was a procedure done? Was a procedure done?: No Differential Dx Differential Diagnosis: Myocardial infarction, Panic Attack, Pneumonia, Pulmonary Embolism, Respiratory Distress X-Ray, Labs, Meds, VS Vital Signs Date Time Temp Pulse Resp B/P (MAP) Pulse Ox O2 Delivery O2 Flow Rate FiO2 08/06/24 17:30 88 18 129/89 (102) 98 08/06/24 15:57 79 16 148/81 (103) 98 08/06/24 14:53 18 100 Room Air* 0 21 08/06/24 14:48 98.0 86 18 149/90 (109) 100 X-Ray, Labs, Meds, VS Comment Imaging: X-rays and CT scans were reviewed and interpreted by this provider, mild pleural effusion noted. No grounds for clinical treatment in the emergency department. Advised to follow up with the PCP. Laboratory: Labs reviewed and interpreted by this provider. No significant abnormalities noted. Patient has prior medical visits reviewed. Med reconciliation performed Vital signs reviewed Time of 1ST Reevaluation: 18:55 Reevaluation 1ST: Improved Patient Education/Counseling: Diagnosis, Treatment, Need For Follow Up (Follow up with PCP next available appointment. Do not missed dialysis on Tuesday.) Family Education/Counseling: Diagnosis Departure 1 Departure Time of Disposition: 18:54 Impression: Primary Impression: Acute exacerbation of CHF (congestive heart failure) Qualified Codes: I50.23 - Acute on chronic systolic (congestive) heart failure Additional Impression: Pleural effusion Disposition: HOME / SELF CARE / HOMELESS Condition: Fair Discharged With: Self Critical Care Note Critical Care Time?: No Stability Stability form required: No Heart Score Heart Score: Heart Score Response (Comments) Value History N/A 0 EKG N/A 0 Age N/A 0 Risk Factors N/A 0 Troponin N/A 0 Total 0 KRISTEN GARCIA MANUAL LATHE MACHINIST Aug 06, 2024 18:55
[2024-08-06 19:07] VITALS: BP 127/70; PULSE 101; PULSE 90; RESP 16; RESP 18; TEMP 97.6; O2SAT 97; O2SAT 98
== END 2024-08-06 19:07 | disposition home or self-care (01) ==
LOC: ER 14:24
DX: I13.2 Hypertensive heart and chronic kidney disease with heart failure and with stage 5 chronic kidney disease, or end stage renal disease (principal); I50.9 Heart failure, unspecified; N18.6 End stage renal disease; E11.22 Type 2 diabetes mellitus with diabetic chronic kidney disease; F41.9 Anxiety disorder, unspecified; F32.9 Major depressive disorder, single episode, unspecified; Z99.2 Dependence on renal dialysis
CPT/HCPCS: 71250